=== PATIENT | male | born 1995 | race Caucasian/White ===

== ENCOUNTER 2019-08-05 17:05 | Emergency (ER) | END 2019-08-05 18:17 | disposition home or self-care (01) | DX: F11.10 Opioid abuse, uncomplicated (principal); F15.10 Other stimulant abuse, uncomplicated; F19.90 Other psychoactive substance use, unspecified, uncomplicated; F17.200 Nicotine dependence, unspecified, uncomplicated | CPT/HCPCS: 36415; 80048; 80076; 80307; 81001; 85025; 99283; G0480 ×2; G0481 ==